=== PATIENT | male | born 1980 | race Caucasian/White ===

== ENCOUNTER 2020-08-09 04:17 | Inpatient (IN) | payer BC, OTHER ==
[~2020-08-09] VITALS: Ht 167.6 cm; Wt 61.6 kg
[2020-08-09 05:39] LABS: Basophils # (auto) 0.1 10 ^3/uL (0-0.2); Basophils % (auto) 0.5 % (0.0-2.0); Eosinophils # (auto) 0 10 ^3/uL (0-0.8); Hematocrit 43.9 % (41.0-53.0); Hemoglobin 14.7 g/dL (13.5-17.5); Lymphocytes # (auto) 0.9 10 ^3/uL (0.4-5.4); Lymphocytes % (auto) 4.2 % (10.0-50.0); Mean Corpuscular Hemoglobin 33.9 pg (28.0-32.0); Mean Corpuscular Hgb Conc. 33.5 g/dL (32.0-36.0); Mean Corpuscular Volume 101.2 fL (80.0-100.0); Monocytes # (auto) 1.5 10 ^3/uL (0-1.3); Monocytes % (auto) 6.4 % (0.0-12.0); Neutrophils % (auto) 88.9 % (37.0-80.0); Platelet Count (auto) 297 10^3/uL (140-450); Red Blood Cells 4.34 10^6/uL (4.5-5.90); Red Cell Distribution Width 14.6 % (11.8-14.3); White Blood Cell 22.5 10^3/uL (4.4-10.8)
[2020-08-09 05:42] LABS: Albumin 4.4 g/dL (3.4-5.0); Calcium 9.2 mg/dL (8.5-10.1)
[2020-08-09 05:45] LABS: Bilirubin, Total 0.6 mg/dL (0.2-1.0); Total Protein 7.3 g/dL (6.4-8.2)
[2020-08-09] MEDS ORDERED: SODIUM CHLORIDE 0.9% 1,000 ML IVB ONE (06:58)
[2020-08-09] MEDS ORDERED: levoFLOXacin 500MG 100 ML IV ONE ×2 (07:00→14:11)
[2020-08-09] MEDS ORDERED: MORPHINE SULFATE 4 MG/ML SYR/VIAL IV ONE (07:00)
[2020-08-09] MEDS ORDERED: ONDANSETRON HCL 4 MG/2 ML VIAL IV ONE ×2 (07:00→14:40)
[2020-08-09 07:34] LABS: INR 0.97 (0.9-1.15)
[2020-08-09] MEDS ORDERED: metroNIDAZOLE 500MG/100ML 100 ML IV ONE (08:00)
[2020-08-09 09:14] LABS: Urine WBC None Seen /hpf (0 - 3)
[2020-08-09] MEDS: SODIUM CHLORIDE 0.9% 1,000 ML IV SCH ×2 (09:23→21:20)
[2020-08-09 09:31] LABS: Urine Bacteria NONE SEEN /hpf (None Seen); Urine Blood Negative /uL (Negative); Urine Mucus FEW (None Seen); Urine Specific Gravity 1.029 (1.001-1.035)
[2020-08-09] MEDS: cefTRIAXone 1GM/50ML D5W 50 ML IV SCH (10:48)
[2020-08-09] MEDS: PANTOPRAZOLE 40 MG/10 ML VIAL INJ IV SCH (10:48)
[2020-08-09 12:59] VITALS: BP 124/52
[2020-08-09 13:06] LABS: Alcohol, Urine < 3.0 mg/dL (0-10); Amphetamine Screen, Urine NEGATIVE (NEGATIVE); Barbiturate Scree,Urine NEGATIVE (NEGATIVE); Benzodiazephine Screen, Urine NEGATIVE (NEGATIVE); Cannabinoid Screen, Urine NEGATIVE (NEGATIVE); Cocaine Screen, Urine NEGATIVE (NEGATIVE); Phencyclidine Screen, Urine NEGATIVE (NEGATIVE)
[2020-08-09 13:15] LABS: Opiate Scree,Urine POSITIVE (NEGATIVE)
[2020-08-09] MEDS ORDERED: POVIDONE IODINE 10 % TOPICAL OINT 30GM TOP ONE (13:52)
[2020-08-09] MEDS ORDERED: SUCCINYLCHOLINE CHLORIDE 20 MG/ML 10ML VIAL IV ONE (13:55)
[2020-08-09] MEDS ORDERED: MIDAZOLAM HCL 1MG/1ML-2 ML VIAL ONE (13:57)
[2020-08-09] MEDS ORDERED: fentaNYL CITRATE 100 MCG/2 ML VL ONE ×2 (13:57→15:21)
[2020-08-09] MEDS ORDERED: ROCURONIUM 10MG/ML 10ML VIAL IV ONE (13:59)
[2020-08-09] MEDS ORDERED: METOCLOPRAMIDE HCL 5MG/ml INJ 2ml VIAL IV ONE (14:40)
[2020-08-09] MEDS ORDERED: PROPOFOL 10 MG/ML 20 ML IV ONE (15:21)
[2020-08-09] MEDS ORDERED: GLYCOPYRROLATE 0.2 MG/ML 1ML VIAL ONE (15:34)
[2020-08-09] MEDS ORDERED: NEOSTIGMINE 1 MG/ML INJ (10mg/10ML VIAL) ONE (15:35)
[2020-08-09 17:00] VITALS: BP 117/67
[2020-08-09] MEDS: metroNIDAZOLE 500MG/100ML 100 ML IV SCH ×2 (18:35→22:38)
[2020-08-09] MEDS: MORPHINE SULFATE 4 MG/ML SYR/VIAL IV PRN ×2 (18:35→22:47)
[2020-08-09 23:24] VITALS: BP_SYST 111; BP_SYST 117; BP_DIAS 70
[2020-08-10] MEDS: MORPHINE SULFATE 4 MG/ML SYR/VIAL IV PRN ×4 (03:37→21:27)
[2020-08-10 05:00] VITALS: BP 123/73
[2020-08-10 06:08] LABS: Basophils # (auto) 0 10 ^3/uL (0-0.2); Basophils % (auto) 0.2 % (0.0-2.0); Eosinophils % (auto) 0.3 % (0.0-7.0); Monocytes # (auto) 1.2 10 ^3/uL (0-1.3); White Blood Cell 15.7 10^3/uL (4.4-10.8)
[2020-08-10 06:11] LABS: Eosinophils # (auto) 0 10 ^3/uL (0-0.8); Hematocrit 40.5 % (41.0-53.0); Lymphocytes # (auto) 1.4 10 ^3/uL (0.4-5.4); Lymphocytes % (auto) 8.6 % (10.0-50.0); Mean Corpuscular Hemoglobin 32.8 pg (28.0-32.0); Mean Corpuscular Volume 102.5 fL (80.0-100.0); Monocytes % (auto) 7.5 % (0.0-12.0); Neutrophils # (auto) 13.1 10 ^3/uL (1.6-8.6); Neutrophils % (auto) 83.4 % (37.0-80.0); Platelet Count (auto) 248 10^3/uL (140-450); Red Blood Cells 3.96 10^6/uL (4.5-5.90); Red Cell Distribution Width 15.1 % (11.8-14.3)
[2020-08-10] MEDS: metroNIDAZOLE 500MG/100ML 100 ML IV SCH ×3 (06:28→21:25)
[2020-08-10 08:04] LABS: Albumin 3.2 g/dL (3.4-5.0); Calcium 8.9 mg/dL (8.5-10.1); Potassium 3.7 mmol/L (3.5-5.1)
[2020-08-10 08:08] LABS: BUN/Creatinine Ratio 21.1; Bilirubin, Total 0.4 mg/dL (0.2-1.0); Total Protein 6.1 g/dL (6.4-8.2)
[2020-08-10 08:51] VITALS: BP 119/73
[2020-08-10] MEDS: cefTRIAXone 1GM/50ML D5W 50 ML IV SCH (09:13)
[2020-08-10] MEDS: PANTOPRAZOLE 40 MG/10 ML VIAL INJ IV SCH (09:13)
[2020-08-10] MEDS: SODIUM CHLORIDE 0.9% 1,000 ML IV SCH (09:14)
[2020-08-10 12:28] VITALS: BP 141/81
[2020-08-10 16:36] VITALS: BP 123/70
[2020-08-10 21:00] VITALS: BP 123/79
[2020-08-10] MEDS: NICOTINE 21MG/24 HR TOPICAL PATCH TD SCH (21:26)
[2020-08-10 21:49] LABS: Magnesium 2.3 mg/dL (1.6-2.6)
[2020-08-11] MEDS: ONDANSETRON HCL 4 MG/2 ML VIAL IV PRN ×4 (01:23→18:15)
[2020-08-11] MEDS: MORPHINE SULFATE 4 MG/ML SYR/VIAL IV PRN ×4 (03:24→18:15)
[2020-08-11 05:00] VITALS: BP 131/83
[2020-08-11] MEDS: metroNIDAZOLE 500MG/100ML 100 ML IV SCH ×3 (06:08→22:11)
[2020-08-11 06:49] LABS: Basophils # (auto) 0 10 ^3/uL (0-0.2); Eosinophils # (auto) 0.2 10 ^3/uL (0-0.8); Lymphocytes # (auto) 1.4 10 ^3/uL (0.4-5.4); Mean Corpuscular Volume 101.5 fL (80.0-100.0); Monocytes # (auto) 1.1 10 ^3/uL (0-1.3); Red Cell Distribution Width 14.6 % (11.8-14.3); White Blood Cell 15.2 10^3/uL (4.4-10.8)
[2020-08-11 06:53] LABS: Basophils % (auto) 0.2 % (0.0-2.0); Eosinophils % (auto) 1.5 % (0.0-7.0); Hematocrit 40.3 % (41.0-53.0); Hemoglobin 13.6 g/dL (13.5-17.5); Lymphocytes % (auto) 9.2 % (10.0-50.0); Mean Corpuscular Hemoglobin 34.3 pg (28.0-32.0); Mean Corpuscular Hgb Conc. 33.8 g/dL (32.0-36.0); Monocytes % (auto) 7.1 % (0.0-12.0); Neutrophils # (auto) 12.4 10 ^3/uL (1.6-8.6); Platelet Count (auto) 271 10^3/uL (140-450); Red Blood Cells 3.97 10^6/uL (4.5-5.90)
[2020-08-11 07:04] LABS: Calcium 8.1 mg/dL (8.5-10.1); Potassium 3.7 mmol/L (3.5-5.1)
[2020-08-11] MEDS: PANTOPRAZOLE 40 MG/10 ML VIAL INJ IV SCH ×2 (08:50→22:11)
[2020-08-11] MEDS: cefTRIAXone 1GM/50ML D5W 50 ML IV SCH (08:51)
[2020-08-11] MEDS: NICOTINE 21MG/24 HR TOPICAL PATCH TD SCH (08:51)
[2020-08-11 09:00] VITALS: BP 124/74
[2020-08-11] MEDS ORDERED: SORE THROAT SPRAY 6OZ BOTTLE MT PRN (12:00)
[2020-08-11] MEDS: SODIUM CHLORIDE 0.9% 1,000 ML IV SCH ×2 (12:00)
[2020-08-11] MEDS ORDERED: LACTULOSE 20Gm/30ML SOLN PO PRN (12:00)
[2020-08-11] MEDS ORDERED: IOHEXOL 300 MG/ML 100ML BOTTLE IJ ONE (12:10)
[2020-08-11 13:00] VITALS: BP 124/79
[2020-08-11 16:40] VITALS: BP 123/83
[2020-08-11] MEDS: SUCRALFATE 1 GM/10 ML ORAL SUSP PO SCH ×2 (18:16→22:00)
[2020-08-11 20:00] VITALS: BP 126/78
[2020-08-11 21:00] VITALS: BP 126/78
[2020-08-11] MEDS: DOCUSATE SOD 100 MG CAP PO SCH (22:00)
[2020-08-12] MEDS: MORPHINE SULFATE 4 MG/ML SYR/VIAL IV PRN ×5 (01:03→23:29)
[2020-08-12] MEDS: ONDANSETRON HCL 4 MG/2 ML VIAL IV PRN ×5 (01:03→23:29)
[2020-08-12] MEDS: SODIUM CHLORIDE 0.9% 1,000 ML IV SCH ×2 (04:40→21:38)
[2020-08-12 05:00] VITALS: BP 130/80
[2020-08-12 05:59] LABS: Basophils # (auto) 0 10 ^3/uL (0-0.2); Eosinophils # (auto) 0.1 10 ^3/uL (0-0.8); Lymphocytes % (auto) 7.2 % (10.0-50.0); Neutrophils % (auto) 86.2 % (37.0-80.0)
[2020-08-12 06:01] LABS: Basophils % (auto) 0.3 % (0.0-2.0); Eosinophils % (auto) 0.5 % (0.0-7.0); Hematocrit 43.1 % (41.0-53.0); Hemoglobin 14.5 g/dL (13.5-17.5); Lymphocytes # (auto) 1.2 10 ^3/uL (0.4-5.4); Mean Corpuscular Hgb Conc. 33.8 g/dL (32.0-36.0); Mean Corpuscular Volume 100.7 fL (80.0-100.0); Monocytes % (auto) 5.8 % (0.0-12.0); Neutrophils # (auto) 14.8 10 ^3/uL (1.6-8.6); Platelet Count (auto) 319 10^3/uL (140-450); Red Blood Cells 4.28 10^6/uL (4.5-5.90); Red Cell Distribution Width 14.5 % (11.8-14.3); White Blood Cell 17.1 10^3/uL (4.4-10.8)
[2020-08-12] MEDS: SUCRALFATE 1 GM/10 ML ORAL SUSP PO SCH ×4 (06:22→21:38)
[2020-08-12] MEDS: metroNIDAZOLE 500MG/100ML 100 ML IV SCH ×3 (06:22→21:38)
[2020-08-12 06:28] LABS: BUN/Creatinine Ratio 23.6; Calcium 8.3 mg/dL (8.5-10.1); Potassium 3.6 mmol/L (3.5-5.1)
[2020-08-12 06:31] LABS: Bilirubin, Total 0.6 mg/dL (0.2-1.0); Total Protein 6.3 g/dL (6.4-8.2)
[2020-08-12 09:00] VITALS: BP 132/83
[2020-08-12] MEDS: cefTRIAXone 1GM/50ML D5W 50 ML IV SCH (09:29)
[2020-08-12] MEDS: PANTOPRAZOLE 40 MG/10 ML VIAL INJ IV SCH ×2 (09:30→21:38)
[2020-08-12] MEDS: DOCUSATE SOD 100 MG CAP PO SCH ×2 (09:31→21:38)
[2020-08-12] MEDS: NICOTINE 21MG/24 HR TOPICAL PATCH TD SCH (09:32)
[2020-08-12 13:00] VITALS: BP 141/85
[2020-08-12 16:32] VITALS: BP 138/80
[2020-08-12 20:00] VITALS: BP 139/86
[2020-08-12 22:00] VITALS: BP 139/86
[2020-08-13 05:30] VITALS: BP 127/77
[2020-08-13] MEDS: metroNIDAZOLE 500MG/100ML 100 ML IV SCH ×3 (06:21→21:25)
[2020-08-13] MEDS: SUCRALFATE 1 GM/10 ML ORAL SUSP PO SCH ×4 (06:22→21:25)
[2020-08-13] MEDS: MORPHINE SULFATE 4 MG/ML SYR/VIAL IV PRN ×4 (07:10→23:29)
[2020-08-13] MEDS: ONDANSETRON HCL 4 MG/2 ML VIAL IV PRN ×4 (07:11→23:29)
[2020-08-13 08:45] VITALS: BP 125/77
[2020-08-13] MEDS: PANTOPRAZOLE 40 MG/10 ML VIAL INJ IV SCH ×2 (09:38→21:25)
[2020-08-13] MEDS: cefTRIAXone 1GM/50ML D5W 50 ML IV SCH (09:38)
[2020-08-13] MEDS: DOCUSATE SOD 100 MG CAP PO SCH ×2 (09:39→21:25)
[2020-08-13] MEDS: NICOTINE 21MG/24 HR TOPICAL PATCH TD SCH (09:39)
[2020-08-13 13:00] VITALS: BP 133/74
[2020-08-13] MEDS: SODIUM CHLORIDE 0.9% 1,000 ML IV SCH (16:00)
[2020-08-13 17:00] VITALS: BP 123/76
[2020-08-13 20:00] VITALS: BP 130/76
[2020-08-13 22:23] VITALS: BP_SYST 130; BP_SYST 133; BP_DIAS 76; BP_DIAS 94
[2020-08-13 22:37] LABS: Basophils # (auto) 0.1 10 ^3/uL (0-0.2); Eosinophils # (auto) 0.4 10 ^3/uL (0-0.8); Hemoglobin 12.6 g/dL (13.5-17.5); Mean Corpuscular Volume 102.4 fL (80.0-100.0); Monocytes # (auto) 1.2 10 ^3/uL (0-1.3)
[2020-08-13 22:39] LABS: Basophils % (auto) 0.6 % (0.0-2.0); Hematocrit 38.8 % (41.0-53.0); Lymphocytes # (auto) 1.6 10 ^3/uL (0.4-5.4); Lymphocytes % (auto) 11.3 % (10.0-50.0); Mean Corpuscular Hemoglobin 33.3 pg (28.0-32.0); Mean Corpuscular Hgb Conc. 32.5 g/dL (32.0-36.0); Monocytes % (auto) 8.7 % (0.0-12.0); Neutrophils # (auto) 10.5 10 ^3/uL (1.6-8.6); Neutrophils % (auto) 76.4 % (37.0-80.0); Platelet Count (auto) 300 10^3/uL (140-450); Red Blood Cells 3.79 10^6/uL (4.5-5.90); Red Cell Distribution Width 14.4 % (11.8-14.3); White Blood Cell 13.8 10^3/uL (4.4-10.8)
[2020-08-13 22:54] LABS: BUN/Creatinine Ratio 23.4; Calcium 7.8 mg/dL (8.5-10.1); Potassium 3.3 mmol/L (3.5-5.1)
[2020-08-14 05:00] VITALS: BP 119/59
[2020-08-14] MEDS: metroNIDAZOLE 500MG/100ML 100 ML IV SCH ×3 (06:03→21:24)
[2020-08-14] MEDS: SODIUM CHLORIDE 0.9% 1,000 ML IV SCH ×2 (06:03→13:15)
[2020-08-14] MEDS: SUCRALFATE 1 GM/10 ML ORAL SUSP PO SCH ×4 (06:57→21:25)
[2020-08-14] MEDS: ONDANSETRON HCL 4 MG/2 ML VIAL IV PRN ×3 (08:07→15:44)
[2020-08-14] MEDS: MORPHINE SULFATE 4 MG/ML SYR/VIAL IV PRN ×4 (08:08→21:25)
[2020-08-14] MEDS ORDERED: MIDAZOLAM HCL 1MG/1ML-2 ML VIAL IV ONE ×2 (08:15→11:30)
[2020-08-14] MEDS ORDERED: fentaNYL CITRATE 100 MCG/2 ML VL IV ONE ×2 (08:15→11:30)
[2020-08-14] MEDS: PANTOPRAZOLE 40 MG/10 ML VIAL INJ IV SCH ×2 (08:57→21:24)
[2020-08-14] MEDS: cefTRIAXone 1GM/50ML D5W 50 ML IV SCH (08:57)
[2020-08-14] MEDS: DOCUSATE SOD 100 MG CAP PO SCH ×2 (08:58→21:40)
[2020-08-14] MEDS: NICOTINE 21MG/24 HR TOPICAL PATCH TD SCH (08:58)
[2020-08-14 09:00] VITALS: BP 116/78
[2020-08-14] MEDS ORDERED: LIDOCAINE 2%HCL (LOCAL ANESTH.) INJ 20ML MDV ONE (09:30)
[2020-08-14 13:00] VITALS: BP 146/93
[2020-08-14 17:00] VITALS: BP 105/71
[2020-08-14 22:00] VITALS: BP 114/69
[2020-08-15 05:00] VITALS: BP 123/71
[2020-08-15] MEDS: MORPHINE SULFATE 4 MG/ML SYR/VIAL IV PRN ×4 (05:49→22:23)
[2020-08-15] MEDS: metroNIDAZOLE 500MG/100ML 100 ML IV SCH ×3 (06:15→22:07)
[2020-08-15] MEDS: SUCRALFATE 1 GM/10 ML ORAL SUSP PO SCH ×4 (06:16→22:08)
[2020-08-15 07:00] LABS: Basophils # (auto) 0.1 10 ^3/uL (0-0.2); Eosinophils # (auto) 0.5 10 ^3/uL (0-0.8)
[2020-08-15 07:02] LABS: Potassium 3.2 mmol/L (3.5-5.1)
[2020-08-15 07:03] LABS: Basophils % (auto) 1.1 % (0.0-2.0); Hematocrit 39.6 % (41.0-53.0); Hemoglobin 13.6 g/dL (13.5-17.5); Lymphocytes # (auto) 1.9 10 ^3/uL (0.4-5.4); Mean Corpuscular Hemoglobin 34.7 pg (28.0-32.0); Mean Corpuscular Hgb Conc. 34.3 g/dL (32.0-36.0); Mean Corpuscular Volume 101.2 fL (80.0-100.0); Monocytes # (auto) 0.9 10 ^3/uL (0-1.3); Monocytes % (auto) 9.7 % (0.0-12.0); Neutrophils # (auto) 6.2 10 ^3/uL (1.6-8.6); Neutrophils % (auto) 64.2 % (37.0-80.0); Platelet Count (auto) 332 10^3/uL (140-450); Red Blood Cells 3.91 10^6/uL (4.5-5.90); Red Cell Distribution Width 14.1 % (11.8-14.3); White Blood Cell 9.7 10^3/uL (4.4-10.8)
[2020-08-15 07:31] LABS: Albumin 2.6 g/dL (3.4-5.0); BUN/Creatinine Ratio 26.3; Bilirubin, Total 0.2 mg/dL (0.2-1.0); Magnesium 2.4 mg/dL (1.6-2.6); Total Protein 5.2 g/dL (6.4-8.2)
[2020-08-15] MEDS: SODIUM CHLORIDE 0.9% 1,000 ML IV SCH (09:15)
[2020-08-15 09:16] VITALS: BP 112/70
[2020-08-15] MEDS: cefTRIAXone 1GM/50ML D5W 50 ML IV SCH (09:18)
[2020-08-15] MEDS: PANTOPRAZOLE 40 MG/10 ML VIAL INJ IV SCH ×2 (09:18→22:08)
[2020-08-15] MEDS: DOCUSATE SOD 100 MG CAP PO SCH ×2 (09:18→22:00)
[2020-08-15] MEDS: NICOTINE 21MG/24 HR TOPICAL PATCH TD SCH (09:19)
[2020-08-15] MEDS: ONDANSETRON HCL 4 MG/2 ML VIAL IV PRN ×2 (10:08→15:18)
[2020-08-15 13:00] VITALS: BP 121/72
[2020-08-15] MEDS ORDERED: POTASSIUM CHL 20 Meq TABLET PO ONE (13:45)
[2020-08-15 17:01] VITALS: BP 153/69
[2020-08-15 21:59] VITALS: BP 108/66
[2020-08-16 04:47] VITALS: BP 110/60
[2020-08-16] MEDS: SODIUM CHLORIDE 0.9% 1,000 ML IV SCH (05:15)
[2020-08-16 05:56] LABS: Basophils # (auto) 0.1 10 ^3/uL (0-0.2); Basophils % (auto) 1.2 % (0.0-2.0); Eosinophils # (auto) 0.5 10 ^3/uL (0-0.8); Hematocrit 41.7 % (41.0-53.0); Hemoglobin 14.1 g/dL (13.5-17.5); Lymphocytes # (auto) 1.9 10 ^3/uL (0.4-5.4); Lymphocytes % (auto) 20.2 % (10.0-50.0); Mean Corpuscular Hemoglobin 34.4 pg (28.0-32.0); Mean Corpuscular Hgb Conc. 33.8 g/dL (32.0-36.0); Neutrophils # (auto) 5.8 10 ^3/uL (1.6-8.6); Neutrophils % (auto) 62.6 % (37.0-80.0); Nucleated Red Blood Cells % 0.1 %; Platelet Count (auto) 357 10^3/uL (140-450); Red Blood Cells 4.09 10^6/uL (4.5-5.90); Red Cell Distribution Width 14.1 % (11.8-14.3); White Blood Cell 9.3 10^3/uL (4.4-10.8)
[2020-08-16] MEDS: metroNIDAZOLE 500MG/100ML 100 ML IV SCH ×2 (06:18→14:00)
[2020-08-16] MEDS: SUCRALFATE 1 GM/10 ML ORAL SUSP PO SCH ×2 (06:19→12:07)
[2020-08-16] MEDS: MORPHINE SULFATE 4 MG/ML SYR/VIAL IV PRN ×2 (07:57→12:07)
[2020-08-16 09:00] VITALS: BP 122/78
[2020-08-16] MEDS: PANTOPRAZOLE 40 MG/10 ML VIAL INJ IV SCH (09:04)
[2020-08-16] MEDS: cefTRIAXone 1GM/50ML D5W 50 ML IV SCH (09:04)
[2020-08-16] MEDS: NICOTINE 21MG/24 HR TOPICAL PATCH TD SCH (09:04)
[2020-08-16] MEDS: DOCUSATE SOD 100 MG CAP PO SCH (09:06)
[2020-08-16] MEDS ORDERED: METR500T PO (12:54)
[2020-08-16] MEDS ORDERED: DOCU-94 PO (12:54)
[2020-08-16] MEDS ORDERED: LEVO500T21 PO (12:54)
[2020-08-16] MEDS ORDERED: NIC21P TOP (12:54)
[2020-08-16] MEDS ORDERED: PANT40TA2 PO (12:54)
[2020-08-16 13:00] VITALS: BP 145/73
== END 2020-08-16 15:18 | disposition home or self-care (01) | DRG 853 ==
LOC: ER 04:17 → OVERFLOW 04:18 → WEST WING 09:53
PROVIDERS: ADMIT Nurse Practitioner; ATTEND Internal Medicine
PROC: 0DTJ4ZZ Resection of Appendix, Percutaneous Endoscopic Approach (ICD-10-PCS; principal; 2020-08-09 14:40)
PROC: 0W9J30Z Drainage of Pelvic Cavity with Drainage Device, Percutaneous Approach (ICD-10-PCS; 2020-08-14)
DX: A41.9 Sepsis, unspecified organism (principal); K35.33 Acute appendicitis with perforation, localized peritonitis, and gangrene, with abscess; J98.11 Atelectasis; K56.7 Ileus, unspecified; K91.89 Other postprocedural complications and disorders of digestive system; E87.6 Hypokalemia; F17.210 Nicotine dependence, cigarettes, uncomplicated; R16.0 Hepatomegaly, not elsewhere classified; Z88.0 Allergy status to penicillin; K82.8 Other specified diseases of gallbladder; D72.829 Elevated white blood cell count, unspecified; J39.2 Other diseases of pharynx
CPT/HCPCS: 10022; 36415; 71045; 74150; 74176; 74177; 76705; 77012; 80048; 80053; 80061; 80307; 81001; 82150; 83605; 83690; 83735; 84132; 85025; 85610; 85730; 86850; 86900; 86901; 87040; 87070; 87075; 87205; 93005; 96361; 96365; 96367; 96375; C1729; C9113; G0378; J0330; J0696; J1956; J2250; J2405; J2704; J3490

== ENCOUNTER 2021-03-12 16:34 | Emergency (ER) | payer BC ==
[~2021-03-12] VITALS: Ht 167.6 cm; Wt 59.0 kg
[~2021-03-12 16:34] MED LIST: DOCU-94 PO; LEVO500T31 PO; METR500T PO; NIC21P TOP; PANT40TA2 PO
[2021-03-12] MEDS ORDERED: SODIUM CHLORIDE 0.9% 1,000 ML IV ONE (17:45)
[2021-03-12 17:46] VITALS: BP 126/91
[2021-03-12] MEDS ORDERED: ONDANSETRON HCL 4 MG/2 ML VIAL IV ONE (18:15)
[2021-03-12 18:42] LABS: Eosinophils # (auto) 0 10 ^3/uL (0-0.8); Lymphocytes # (auto) 1.8 10 ^3/uL (0.4-5.4); Neutrophils # (auto) 10.9 10 ^3/uL (1.6-8.6)
[2021-03-12 18:44] LABS: Basophils # (auto) 0.1 10 ^3/uL (0-0.2); Basophils % (auto) 0.5 % (0.0-2.0); Eosinophils % (auto) 0.1 % (0.0-7.0); Hematocrit 49.7 % (41.0-53.0); Hemoglobin 16.6 g/dL (13.5-17.5); Lymphocytes % (auto) 13.5 % (10.0-50.0); Mean Corpuscular Hemoglobin 34.2 pg (28.0-32.0); Mean Corpuscular Hgb Conc. 33.5 g/dL (32.0-36.0); Mean Corpuscular Volume 102.2 fL (80.0-100.0); Monocytes # (auto) 0.9 10 ^3/uL (0-1.3); Monocytes % (auto) 6.7 % (0.0-12.0); Neutrophils % (auto) 79.2 % (37.0-80.0); Platelet Count (auto) 369 10^3/uL (140-450); Red Blood Cells 4.86 10^6/uL (4.5-5.90); White Blood Cell 13.7 10^3/uL (4.4-10.8)
[2021-03-12 19:00] LABS: Albumin 4.3 g/dL (3.4-5.0); Calcium 9.1 mg/dL (8.5-10.1); Potassium 3.9 mmol/L (3.5-5.1)
[2021-03-12 19:03] LABS: BUN/Creatinine Ratio 23.6; Bilirubin, Total 0.5 mg/dL (0.2-1.0); Total Protein 7.8 g/dL (6.4-8.2)
== END 2021-03-12 20:05 | disposition home or self-care (01) ==
LOC: ER 16:34
DX: K27.9 Peptic ulcer, site unspecified, unspecified as acute or chronic, without hemorrhage or perforation (principal); R11.2 Nausea with vomiting, unspecified; F17.210 Nicotine dependence, cigarettes, uncomplicated; Z86.16 Personal history of COVID-19; Z88.0 Allergy status to penicillin; Z79.899 Other long term (current) drug therapy; Z90.89 Acquired absence of other organs
CPT/HCPCS: 36415; 71046; 74176; 80053; 82150; 83690; 84484; 85025; 93005; 96361; 96374; 99285; J2405; J7030

== ENCOUNTER 2021-04-20 07:30 | Inpatient (IN) | payer BC ==
[~2021-04-20] VITALS: Ht 167.6 cm; Wt 64.5 kg
[2021-04-20] MEDS ORDERED: PANTOPRAZOLE 40 MG/10 ML VIAL INJ IV ONE (08:00)
[2021-04-20] MEDS ORDERED: ONDANSETRON HCL 4 MG/2 ML VIAL IV ONE (08:00)
[2021-04-20] MEDS ORDERED: SODIUM CHLORIDE 0.9% 1,000 ML IV ONE (08:00)
[2021-04-20] MEDS ORDERED: MORPHINE SULFATE 4 MG/ML SYR/VIAL ONE (08:04)
[2021-04-20] MEDS ORDERED: MORPHINE SULFATE 4 MG/ML SYR/VIAL IV ONE (08:15)
[2021-04-20 08:23] LABS: Basophils # (auto) 0.1 10 ^3/uL (0-0.2); Hemoglobin 14.2 g/dL (13.5-17.5); Lymphocytes # (auto) 2.5 10 ^3/uL (0.4-5.4); Monocytes # (auto) 0.7 10 ^3/uL (0-1.3)
[2021-04-20 08:25] LABS: Basophils % (auto) 0.6 % (0.0-2.0); Eosinophils # (auto) 0.3 10 ^3/uL (0-0.8); Eosinophils % (auto) 1.4 % (0.0-7.0); Lymphocytes % (auto) 13.7 % (10.0-50.0); Mean Corpuscular Hemoglobin 33.9 pg (28.0-32.0); Mean Corpuscular Volume 102.9 fL (80.0-100.0); Monocytes % (auto) 3.9 % (0.0-12.0); Neutrophils # (auto) 14.8 10 ^3/uL (1.6-8.6); Neutrophils % (auto) 80.4 % (37.0-80.0); Platelet Count (auto) 320 10^3/uL (140-450); Red Blood Cells 4.18 10^6/uL (4.5-5.90); Red Cell Distribution Width 14.2 % (11.8-14.3); White Blood Cell 18.3 10^3/uL (4.4-10.8)
[2021-04-20 08:38] LABS: Chloride 110 mmol/L (98-107); Sodium 141 mmol/L (136-145)
[2021-04-20 08:49] LABS: Alanine Aminotransferase 20 U/L (16-61); Albumin 3.7 g/dL (3.4-5.0); Alkaline Phosphatase 46 U/L (45-117); Anion Gap 8 (5-15); Aspartate Aminotransferase 18 U/L (15-37); BUN/Creatinine Ratio 28.6; Bilirubin, Total 0.2 mg/dL (0.2-1.0); Blood Urea Nitrogen 16 mg/dL (7-18); Calcium 8.1 mg/dL (8.5-10.1); Carbon Dioxide 23 mmol/L (21-32); GFR African American 205 mL/min; GFR Non-African American 169 mL/min; Glucose 107 mg/dL (74-106); Lipase 88 U/L (73-393); Magnesium 2.3 mg/dL (1.6-2.6); Total Protein 6.6 g/dL (6.4-8.2)
[2021-04-20] MEDS ORDERED: HYDROmorphone HCL 2 MG/ML VL IV ONE (09:30)
[2021-04-20] MEDS ORDERED: cefTRIAXone 1GM/50ML D5W 50 ML IV ONE (09:30)
[2021-04-20] MEDS ORDERED: metroNIDAZOLE 500MG/100ML 100 ML IV ONE ×2 (09:30→12:00)
[2021-04-20] MEDS ORDERED: PANTOPRAZOLE 40mg/50ML NS AE 50 ML IV ONE ×2 (09:30→12:00)
[2021-04-20] MEDS ORDERED: SUCCINYLCHOLINE CHLORIDE 20 MG/ML 10ML VIAL IV ONE (10:28)
[2021-04-20] MEDS ORDERED: FAMOTIDINE (10MG/ML) 2ML VL IV ONE (10:28)
[2021-04-20] MEDS ORDERED: HYDROmorphone HCL 2 MG/ML VL ONE ×2 (10:29→12:12)
[2021-04-20] MEDS ORDERED: fentaNYL CITRATE 100 MCG/2 ML VL ONE (10:29)
[2021-04-20 10:30] LABS: Urine Bacteria NONE SEEN /hpf (None Seen); Urine Blood Negative /uL (Negative); Urine Mucus FEW (None Seen); Urine Specific Gravity 1.032 (1.001-1.035); Urine WBC 1 /hpf (0 - 3)
[2021-04-20] MEDS ORDERED: ROCURONIUM 10MG/ML 10ML VIAL IV ONE (10:30)
[2021-04-20] MEDS ORDERED: MIDAZOLAM HCL 1MG/1ML-2 ML VIAL ONE (10:30)
[2021-04-20] MEDS ORDERED: DexAMETHasone SOD PHOS 10MG/1ML VIAL INJ ONE (10:30)
[2021-04-20] MEDS ORDERED: ONDANSETRON HCL 4 MG/2 ML VIAL ONE (10:30)
[2021-04-20] MEDS ORDERED: GLYCOPYRROLATE 0.2 MG/ML 1ML VIAL ONE (10:30)
[2021-04-20] MEDS ORDERED: LIDOCAINE 2% (LOCAL ANESTH.) PF 5ml SDV ONE (10:30)
[2021-04-20] MEDS ORDERED: NEOSTIGMINE 1 MG/ML INJ (10mg/10ML VIAL) ONE (10:30)
[2021-04-20 10:36] LABS: INR 0.93 (0.9-1.15); Partial Thromboplastin Time 21.9 sec (23.0-31.2)
[2021-04-20] MEDS ORDERED: NITROGLYCERIN 0.4 MG SL TAB SL PRN (12:00)
[2021-04-20] MEDS ORDERED: CEFTRIAXONE SODIUM 2 GM in D5W 5% 50 ML IV ONE (12:00)
[2021-04-20] MEDS ORDERED: HYDROmorphone HCL 2 MG/ML VL IM ONE (12:00)
[2021-04-20] MEDS ORDERED: MORPHINE SULF INJ 2 MG/ML SYRINGE 1ML IV PRN (12:00)
[2021-04-20] MEDS ORDERED: ONDANSETRON HCL 4 MG/2 ML VIAL IV PRN (12:15)
[2021-04-20] MEDS: HYDROmorphone HCL 2 MG/ML VL IV PRN ×6 (12:15→21:23)
[2021-04-20 14:15] VITALS: BP 139/79
[2021-04-20] MEDS: D5W/SOD CHL 0.45%/KCL 40MEQ 1,000 ML IV SCH ×2 (16:46→23:10)
[2021-04-20 17:00] VITALS: BP 150/75
[2021-04-20 21:22] VITALS: BP 113/67
[2021-04-21] MEDS: HYDROmorphone HCL 2 MG/ML VL IV PRN ×5 (01:54→18:49)
[2021-04-21 05:00] VITALS: BP 127/74
[2021-04-21] MEDS: D5W/SOD CHL 0.45%/KCL 40MEQ 1,000 ML IV SCH ×2 (06:46→20:00)
[2021-04-21 09:00] VITALS: BP 140/89
[2021-04-21] MEDS: ONDANSETRON HCL 4 MG/2 ML VIAL IV PRN ×4 (10:33→18:51)
[2021-04-21] MEDS ORDERED: PANTOPRAZOLE 40 MG/10 ML VIAL INJ IV ONE (12:00)
[2021-04-21] MEDS ORDERED: metroNIDAZOLE 500MG/100ML 100 ML IV ONE (12:00)
[2021-04-21] MEDS ORDERED: ceFAZolin 1GM/50ML 50 ML IV ONE (12:00)
[2021-04-21] MEDS ORDERED: cefTRIAXone 1GM/50ML D5W 50 ML IV ONE (12:30)
[2021-04-21 13:00] VITALS: BP 131/81
[2021-04-21 13:04] LABS: Basophils # (auto) 0.1 10 ^3/uL (0-0.2); Basophils % (auto) 0.5 % (0.0-2.0); Eosinophils # (auto) 0 10 ^3/uL (0-0.8); Eosinophils % (auto) 0.1 % (0.0-7.0)
[2021-04-21 13:06] LABS: Hematocrit 41.5 % (41.0-53.0); Hemoglobin 14.1 g/dL (13.5-17.5); Lymphocytes # (auto) 1.5 10 ^3/uL (0.4-5.4); Lymphocytes % (auto) 7.8 % (10.0-50.0); Mean Corpuscular Hemoglobin 34.7 pg (28.0-32.0); Mean Corpuscular Volume 101.9 fL (80.0-100.0); Monocytes # (auto) 1.2 10 ^3/uL (0-1.3); Monocytes % (auto) 6.6 % (0.0-12.0); Neutrophils # (auto) 15.8 10 ^3/uL (1.6-8.6); Nucleated Red Blood Cells % 0.1 %; Platelet Count (auto) 276 10^3/uL (140-450); Red Blood Cells 4.07 10^6/uL (4.5-5.90); White Blood Cell 18.6 10^3/uL (4.4-10.8)
[2021-04-21] MEDS: HYDROcodone-ACET 5/325MG TAB PO PRN (13:17)
[2021-04-21 13:21] LABS: Albumin 3.1 g/dL (3.4-5.0); Calcium 8.5 mg/dL (8.5-10.1); Potassium 4.2 mmol/L (3.5-5.1)
[2021-04-21 13:24] LABS: BUN/Creatinine Ratio 13.3; Bilirubin, Total 0.4 mg/dL (0.2-1.0); Total Protein 6.4 g/dL (6.4-8.2)
[2021-04-21] MEDS ORDERED: PPN PER PHARMACY 0 ML IV SCH (13:30)
[2021-04-21] MEDS ORDERED: D5W/SOD CHL 0.45%/KCL 40MEQ 1,000 ML IV SCH (13:45)
[2021-04-21] MEDS ORDERED: ceFAZolin 1GM/50ML 50 ML IV SCH (14:00)
[2021-04-21 14:05] LABS: Magnesium 2.2 mg/dL (1.6-2.6); Phosphorus 1.4 mg/dL (2.5-4.90)
[2021-04-21 16:51] VITALS: BP 123/81
[2021-04-21] MEDS ORDERED: SODIUM PHOSPHATES 30 MEQ in SODIUM CHL 0.9% 250 ML IV SCH (17:00)
[2021-04-21] MEDS: SUCRALFATE 1 GM/10 ML ORAL SUSP PO SCH ×2 (18:48→22:00)
[2021-04-21] MEDS: PPN PER PHARMACY IV NR ×6 (21:21)
[2021-04-21] MEDS: metroNIDAZOLE 500MG/100ML 100 ML IV SCH (21:21)
[2021-04-21 22:00] VITALS: BP 136/74
[2021-04-21] MEDS: PANTOPRAZOLE 40 MG/10 ML VIAL INJ IV SCH (23:15)
[2021-04-22] MEDS ORDERED: DEXTROSE (50%) 50ML SYRG IV SCH
[2021-04-22] MEDS: HYDROmorphone HCL 2 MG/ML VL IV PRN ×6 (00:10→22:50)
[2021-04-22] MEDS: ONDANSETRON HCL 4 MG/2 ML VIAL IV PRN ×6 (00:10→21:29)
[2021-04-22] MEDS: ACCU-CHEK COMFORT CURVE STRIP VI SCH ×4 (01:05→17:58)
[2021-04-22 05:00] VITALS: BP 136/85
[2021-04-22] MEDS: metroNIDAZOLE 500MG/100ML 100 ML IV SCH ×3 (05:39→19:58)
[2021-04-22] MEDS: D5W/SOD CHL 0.45%/KCL 40MEQ 1,000 ML IV SCH ×2 (05:41→21:14)
[2021-04-22] MEDS: SUCRALFATE 1 GM/10 ML ORAL SUSP PO SCH ×4 (05:41→22:22)
[2021-04-22] MEDS: InsuLIN REG 1unit/0.01ml Soln (100units/ml) SC SCH ×4 (05:42→18:00)
[2021-04-22 05:53] LABS: Basophils # (auto) 0 10 ^3/uL (0-0.2); Eosinophils # (auto) 0 10 ^3/uL (0-0.8); Eosinophils % (auto) 0.2 % (0.0-7.0); Hemoglobin 13.5 g/dL (13.5-17.5)
[2021-04-22 05:56] LABS: Basophils % (auto) 0.1 % (0.0-2.0); Hematocrit 38.9 % (41.0-53.0); Mean Corpuscular Hemoglobin 35.6 pg (28.0-32.0); Mean Corpuscular Hgb Conc. 34.8 g/dL (32.0-36.0); Mean Corpuscular Volume 102.2 fL (80.0-100.0); Monocytes % (auto) 6.8 % (0.0-12.0); Neutrophils # (auto) 12.3 10 ^3/uL (1.6-8.6); Neutrophils % (auto) 85.9 % (37.0-80.0); Platelet Count (auto) 251 10^3/uL (140-450); Red Blood Cells 3.81 10^6/uL (4.5-5.90); Red Cell Distribution Width 13.9 % (11.8-14.3); White Blood Cell 14.3 10^3/uL (4.4-10.8)
[2021-04-22 06:08] LABS: INR 0.97 (0.9-1.15); Partial Thromboplastin Time 26.8 sec (23.0-31.2)
[2021-04-22 06:17] LABS: Chloride 106 mmol/L (98-107); Magnesium 2.2 mg/dL (1.6-2.6); Potassium 3.9 mmol/L (3.5-5.1); Sodium 138 mmol/L (136-145)
[2021-04-22 06:27] LABS: Alanine Aminotransferase 15 U/L (16-61); Albumin 2.9 g/dL (3.4-5.0); Alkaline Phosphatase 49 U/L (45-117); Anion Gap 6 (5-15); Aspartate Aminotransferase 13 U/L (15-37); BUN/Creatinine Ratio 18.2; Bilirubin, Total 0.3 mg/dL (0.2-1.0); Blood Urea Nitrogen 8 mg/dL (7-18); Calcium 8.3 mg/dL (8.5-10.1); Carbon Dioxide 26 mmol/L (21-32); GFR African American 270 mL/min; GFR Non-African American 224 mL/min; Glucose 125 mg/dL (74-106); Phosphorus 2.2 mg/dL (2.5-4.90); Pre Albumin 16.6 mg/dL (20.0-40.0); Total Protein 6.4 g/dL (6.4-8.2); Triglycerides 113 mg/dL (< 150)
[2021-04-22 06:28] LABS: Uric Acid 2.9 mg/dL (3.5-7.2)
[2021-04-22] MEDS: cefTRIAXone 1GM/50ML D5W 50 ML IV SCH (08:53)
[2021-04-22] MEDS: PANTOPRAZOLE 40 MG/10 ML VIAL INJ IV SCH ×2 (08:54→22:22)
[2021-04-22 09:00] VITALS: BP 146/85
[2021-04-22] MEDS ORDERED: SODIUM PHOSPHATES 20 MEQ in SODIUM CHL 0.9% 100 ML IV ONE (11:15)
[2021-04-22 13:00] VITALS: BP 140/87
[2021-04-22 17:00] VITALS: BP 150/93
[2021-04-22] MEDS: PPN PER PHARMACY IV NR ×6 (19:55)
[2021-04-22 20:00] VITALS: BP 146/88
[2021-04-22] MEDS ORDERED: PPN PER PHARMACY IV NR ×9 (20:00)
[2021-04-22 22:20] VITALS: BP 146/88
[2021-04-23] MEDS: ACCU-CHEK COMFORT CURVE STRIP VI SCH ×4 (00:23→18:16)
[2021-04-23] MEDS: InsuLIN REG 1unit/0.01ml Soln (100units/ml) SC SCH ×4 (00:23→18:00)
[2021-04-23] MEDS: ONDANSETRON HCL 4 MG/2 ML VIAL IV PRN ×5 (02:22→20:22)
[2021-04-23] MEDS: HYDROmorphone HCL 2 MG/ML VL IV PRN ×5 (03:02→20:22)
[2021-04-23] MEDS: metroNIDAZOLE 500MG/100ML 100 ML IV SCH ×3 (04:15→20:20)
[2021-04-23 05:47] LABS: Basophils # (auto) 0.1 10 ^3/uL (0-0.2); Eosinophils # (auto) 0.1 10 ^3/uL (0-0.8); Hemoglobin 14.1 g/dL (13.5-17.5); Lymphocytes # (auto) 1.2 10 ^3/uL (0.4-5.4); White Blood Cell 12.8 10^3/uL (4.4-10.8)
[2021-04-23 05:49] VITALS: BP 149/88
[2021-04-23 05:50] LABS: Basophils % (auto) 0.6 % (0.0-2.0); Hematocrit 41.9 % (41.0-53.0); Lymphocytes % (auto) 9.4 % (10.0-50.0); Mean Corpuscular Hemoglobin 34.4 pg (28.0-32.0); Mean Corpuscular Hgb Conc. 33.6 g/dL (32.0-36.0); Mean Corpuscular Volume 102.4 fL (80.0-100.0); Monocytes # (auto) 0.9 10 ^3/uL (0-1.3); Monocytes % (auto) 7.3 % (0.0-12.0); Neutrophils # (auto) 10.5 10 ^3/uL (1.6-8.6); Neutrophils % (auto) 81.7 % (37.0-80.0); Nucleated Red Blood Cells % 0.1 %; Platelet Count (auto) 276 10^3/uL (140-450); Red Blood Cells 4.09 10^6/uL (4.5-5.90); Red Cell Distribution Width 13.9 % (11.8-14.3)
[2021-04-23 06:03] LABS: INR 0.96 (0.9-1.15); Partial Thromboplastin Time 25.2 sec (23.0-31.2)
[2021-04-23 06:06] LABS: Albumin 2.9 g/dL (3.4-5.0); Potassium 3.8 mmol/L (3.5-5.1)
[2021-04-23 06:12] LABS: BUN/Creatinine Ratio 23.1; Bilirubin, Total 0.4 mg/dL (0.2-1.0); Calcium 8.4 mg/dL (8.5-10.1); Magnesium 2.4 mg/dL (1.6-2.6); Phosphorus 3.2 mg/dL (2.5-4.90); Total Protein 6.5 g/dL (6.4-8.2)
[2021-04-23] MEDS: SUCRALFATE 1 GM/10 ML ORAL SUSP PO SCH ×2 (06:42→11:45)
[2021-04-23] MEDS: PANTOPRAZOLE 40 MG/10 ML VIAL INJ IV SCH ×2 (08:42→20:21)
[2021-04-23] MEDS: cefTRIAXone 1GM/50ML D5W 50 ML IV SCH (08:43)
[2021-04-23 09:00] VITALS: BP 134/70
[2021-04-23] MEDS: D5W/SOD CHL 0.45%/KCL 40MEQ 1,000 ML IV SCH ×2 (11:45→12:30)
[2021-04-23 12:47] VITALS: BP 136/78
[2021-04-23 17:11] VITALS: BP 135/83
[2021-04-23] MEDS ORDERED: PPN PER PHARMACY IV NR ×10 (20:00)
[2021-04-23 21:47] VITALS: BP 137/86
[2021-04-24] MEDS: ACCU-CHEK COMFORT CURVE STRIP VI SCH ×5 (00:08→23:56)
[2021-04-24] MEDS: HYDROmorphone HCL 2 MG/ML VL IV PRN ×6 (00:41→22:49)
[2021-04-24] MEDS: ONDANSETRON HCL 4 MG/2 ML VIAL IV PRN ×6 (00:41→22:49)
[2021-04-24] MEDS: D5W/SOD CHL 0.45%/KCL 40MEQ 1,000 ML IV SCH ×2 (03:51→20:12)
[2021-04-24] MEDS: metroNIDAZOLE 500MG/100ML 100 ML IV SCH ×3 (03:51→20:12)
[2021-04-24 05:38] VITALS: BP_SYST 101; BP_SYST 138; BP_SYST 92; BP_DIAS 45; BP_DIAS 57; BP_DIAS 87
[2021-04-24] MEDS: InsuLIN REG 1unit/0.01ml Soln (100units/ml) SC SCH ×5 (06:22→23:56)
[2021-04-24 06:35] LABS: Basophils # (auto) 0 10 ^3/uL (0-0.2); Basophils % (auto) 0.4 % (0.0-2.0); Eosinophils # (auto) 0.3 10 ^3/uL (0-0.8); Eosinophils % (auto) 2.6 % (0.0-7.0); Hemoglobin 14.3 g/dL (13.5-17.5); Lymphocytes # (auto) 1.2 10 ^3/uL (0.4-5.4); Lymphocytes % (auto) 11.6 % (10.0-50.0); Mean Corpuscular Hemoglobin 35.5 pg (28.0-32.0); Mean Corpuscular Hgb Conc. 34.8 g/dL (32.0-36.0); Monocytes # (auto) 0.8 10 ^3/uL (0-1.3); Monocytes % (auto) 8.2 % (0.0-12.0); Neutrophils # (auto) 7.8 10 ^3/uL (1.6-8.6); Neutrophils % (auto) 77.2 % (37.0-80.0); Platelet Count (auto) 272 10^3/uL (140-450); Red Blood Cells 4.02 10^6/uL (4.5-5.90); Red Cell Distribution Width 13.8 % (11.8-14.3); White Blood Cell 10.1 10^3/uL (4.4-10.8)
[2021-04-24 06:48] LABS: Potassium 3.8 mmol/L (3.5-5.1)
[2021-04-24 07:02] LABS: Albumin 2.7 g/dL (3.4-5.0); Bilirubin, Total 0.5 mg/dL (0.2-1.0); Calcium 8.1 mg/dL (8.5-10.1); Magnesium 2.2 mg/dL (1.6-2.6); Phosphorus 3.2 mg/dL (2.5-4.90); Total Protein 6.1 g/dL (6.4-8.2)
[2021-04-24] MEDS: cefTRIAXone 1GM/50ML D5W 50 ML IV SCH (08:53)
[2021-04-24 09:00] VITALS: BP 142/82
[2021-04-24] MEDS: PANTOPRAZOLE 40 MG/10 ML VIAL INJ IV SCH ×2 (10:19→20:12)
[2021-04-24] MEDS ORDERED: GASTROGRAFIN 120 ML SOL ONE (11:05)
[2021-04-24 13:00] VITALS: BP 149/84
[2021-04-24 17:00] VITALS: BP 139/89
[2021-04-24 17:14] VITALS: BP 139/89
[2021-04-24] MEDS ORDERED: PPN PER PHARMACY IV NR ×10 (20:00)
[2021-04-24 22:00] VITALS: BP 147/98
[2021-04-25] MEDS: ONDANSETRON HCL 4 MG/2 ML VIAL IV PRN ×2 (02:50→06:52)
[2021-04-25] MEDS: HYDROmorphone HCL 2 MG/ML VL IV PRN ×5 (02:50→22:23)
[2021-04-25] MEDS: metroNIDAZOLE 500MG/100ML 100 ML IV SCH ×3 (03:44→20:42)
[2021-04-25 05:00] VITALS: BP 143/82
[2021-04-25] MEDS: InsuLIN REG 1unit/0.01ml Soln (100units/ml) SC SCH ×2 (05:48→11:45)
[2021-04-25] MEDS: ACCU-CHEK COMFORT CURVE STRIP VI SCH ×2 (05:48→11:45)
[2021-04-25 06:37] LABS: Albumin 2.7 g/dL (3.4-5.0); Magnesium 2.2 mg/dL (1.6-2.6)
[2021-04-25 06:42] LABS: BUN/Creatinine Ratio 34.9; Bilirubin, Total 0.4 mg/dL (0.2-1.0); Phosphorus 3.1 mg/dL (2.5-4.90); Total Protein 5.9 g/dL (6.4-8.2)
[2021-04-25 08:47] VITALS: BP 137/88
[2021-04-25] MEDS: PANTOPRAZOLE 40 MG/10 ML VIAL INJ IV SCH ×2 (09:33→20:56)
[2021-04-25] MEDS: cefTRIAXone 1GM/50ML D5W 50 ML IV SCH (09:33)
[2021-04-25 13:00] VITALS: BP 130/79
[2021-04-25] MEDS: HYDROcodone-ACET 5/325MG TAB PO PRN (15:54)
[2021-04-25] MEDS: D5W/SOD CHL 0.45%/KCL 40MEQ 1,000 ML IV SCH (15:55)
[2021-04-25 16:49] VITALS: BP 138/77
[2021-04-25] MEDS ORDERED: PPN PER PHARMACY IV NR ×10 (20:00)
[2021-04-25 22:00] VITALS: BP 128/62
[2021-04-26] MEDS: HYDROmorphone HCL 2 MG/ML VL IV PRN ×4 (02:44→15:24)
[2021-04-26] MEDS: metroNIDAZOLE 500MG/100ML 100 ML IV SCH ×2 (03:24→12:53)
[2021-04-26 05:00] VITALS: BP 115/54
[2021-04-26] MEDS: D5W/SOD CHL 0.45%/KCL 40MEQ 1,000 ML IV SCH (06:25)
[2021-04-26 09:00] VITALS: BP 127/84
[2021-04-26] MEDS: PANTOPRAZOLE 40 MG/10 ML VIAL INJ IV SCH (11:27)
[2021-04-26] MEDS: cefTRIAXone 1GM/50ML D5W 50 ML IV SCH (11:28)
[2021-04-26 13:00] VITALS: BP 115/68
[2021-04-26] MEDS: HYDROcodone-ACET 5/325MG TAB PO PRN (13:01)
[2021-04-26 16:26] VITALS: BP 121/64
[2021-04-26 17:03] VITALS: BP 121/64
== END 2021-04-26 18:00 | disposition home or self-care (01) | DRG 853 ==
LOC: EDBD 07:30 → EDUNIT# 07:30 → ER 07:30 → OVERFLOW 11:50 → WEST WING 14:31
PROVIDERS: ADMIT Surgery; ATTEND Internal Medicine
PROC: 0DQ60ZZ Repair Stomach, Open Approach (ICD-10-PCS; principal; 2021-04-20 10:52)
DX: A41.9 Sepsis, unspecified organism (principal); K26.5 Chronic or unspecified duodenal ulcer with perforation; E44.0 Moderate protein-calorie malnutrition; K56.7 Ileus, unspecified; Z20.822 Contact with and (suspected) exposure to COVID-19; K29.70 Gastritis, unspecified, without bleeding; F17.210 Nicotine dependence, cigarettes, uncomplicated; K26.9 Duodenal ulcer, unspecified as acute or chronic, without hemorrhage or perforation; Z88.0 Allergy status to penicillin; Z79.899 Other long term (current) drug therapy; Z80.0 Family history of malignant neoplasm of digestive organs; Z90.49 Acquired absence of other specified parts of digestive tract; Z68.21 Body mass index [BMI] 21.0-21.9, adult
CPT/HCPCS: 36415; 71045; 74018; 74022; 74176; 74246; 80053; 80061; 81001; 82040; 82306; 82962; 83036; 83605; 83690; 83735; 83880; 84100; 84443; 84478; 84484; 84550; 85025; 85610; 85730; 86850; 86900; 86901; 87040; 87086; 87426; 93005; 96365; 96368; 96375; C9113; G0378; J0330; J0696; J1100; J1815; J2001; J2250; J2405; J3490; J7060

== ENCOUNTER 2022-10-01 13:05 | Emergency (ER) | payer BC ==
[~2022-10-01] VITALS: Ht 167.6 cm; Wt 60.2 kg
[2022-10-01 18:54] VITALS: BP 112/80
== END 2022-10-01 18:55 | disposition home or self-care (01) ==
LOC: ER 13:05
DX: R51.9 Headache, unspecified (principal); R11.2 Nausea with vomiting, unspecified; F17.210 Nicotine dependence, cigarettes, uncomplicated; Z90.49 Acquired absence of other specified parts of digestive tract
CPT/HCPCS: 70450; 72125